=== PATIENT | male | born 1990 | race Caucasian/White ===

== ENCOUNTER 2017-02-11 14:16 | Day surgery (SDC) | payer OTHER ==
[~2017-02-11] VITALS: Ht 172.7 cm; Wt 61.0 kg
[2017-02-11] VITALS (19 sets, daily range): BP systolic 111–174; BP diastolic 56–70; PULSE 60–78; RESP 17–20; Ht 172.7 cm; Wt 61.0 kg
[2017-02-11] MEDS ORDERED: TERB250T46 PO (14:30)
[2017-02-11] MEDS ORDERED: NAPR-688 PO (14:30)
[2017-02-11] MEDS ORDERED: TRAM50TA2 PO (14:31)
[2017-02-11] MEDS ORDERED: HYDR10FO PR (14:31)
--- NOTE | 2017-02-11 15:55 | HPN ---
Date/Time of Note Date/Time of Note DATE: 02/11/17 TIME: 15:55 Interval H&P Admission Note Pt. 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
[2017-02-11] MEDS ORDERED: LIDOCAINE 2% (SDV) 5 ML INJ ONE (17:18)
[2017-02-11] MEDS ORDERED: MEPERIDINE 100 MG INJ ONE (17:18)
[2017-02-11] MEDS ORDERED: PROPOFOL 20 ML ONE (17:18)
[2017-02-11] MEDS ORDERED: CEFAZOLIN 1 GM INJ ONE (17:18)
[2017-02-11] MEDS ORDERED: BUPIVACAINE 0.5% (SDV) 30 ML INJ ONE (17:45)
[2017-02-11] MEDS ORDERED: POLYMYXIN/BACITRACIN 1L IRRIG IRR ONE (18:37)
[2017-02-11] MEDS ORDERED: ONDANSETRON 4 MG INJ ONE (18:41)
--- NOTE | 2017-02-11 18:52 | OPPN ---
Date/Time of Note Date/Time of Note DATE: 02/11/17 TIME: 18:51 Operative Report Preoperative Diagnosis Right ring and small finger CMC fracture dislocations with ring finger metacarpal base intra-articular fracture and hamate fracture Postoperative Diagnosis Right ring and small finger CMC fracture dislocations with ring finger metacarpal base intra-articular fracture and hamate fracture Operation/Procedure Performed Open treatment of Right ring and small finger CMC fracture dislocations, ring finger metacarpal base intra-articular fracture and hamate fracture Provider: MIKE STOREY Anesthesia Type: general Estimated blood loss: 0 - 10 ml's Transfusion Required: no Specimen: none Grafts/Implants: none Complications: no MIKE STOREY Feb 11, 2017 18:52
[2017-02-11] MEDS ORDERED: ONDANSETRON 4 MG INJ IV PRN (19:00)
[2017-02-11] MEDS ORDERED: EPHEDrine SULFATE 50 MG/5 ML SYG IV PRN (19:00)
[2017-02-11] MEDS ORDERED: FENTAnyl 50 MCG/ML VIAL IV PRN ×3 (19:00)
[2017-02-11] MEDS ORDERED: METOCLOPRAMIDE 10 MG INJ IV PRN (19:00)
[2017-02-11] MEDS ORDERED: hydrALAzine 20 MG INJ IV PRN (19:00)
[2017-02-11] MEDS ORDERED: LABETALOL HCL 20MG INJ IV PRN (19:00)
[2017-02-11] MEDS ORDERED: MEPERIDINE 25 MG INJ IV PRN (19:00)
[2017-02-11] MEDS ORDERED: DIPHENHYDRAMINE 50 MG INJ IV PRN (19:00)
[2017-02-11] MEDS ORDERED: HYDROmorphONE (0.2 MG/ML) 10ML SYG IV PRN ×2 (19:00)
[2017-02-11] MEDS ORDERED: OXYCODONE/ACETAMINOPHEN (5/325) TAB PO PRN ×2 (19:00)
[2017-02-11] MEDS ORDERED: HYDROmorphONE (0.2 MG/ML) 10ML SYG IV ONE (19:07)
[2017-02-11] MEDS: HYDROmorphONE (0.2 MG/ML) 10ML SYG IV PRN ×2 (19:28→19:41)
--- NOTE | 2017-02-11 19:46 | OPR ---
DATE OF OPERATION: 02/11/2017 SURGEON: Andi Jones MD ANESTHESIA: General plus local. PREOPERATIVE DIAGNOSIS: 1. Right small finger carpometacarpal joint fracture subluxation/dislocation. 2. Right ring finger carpometacarpal joint fracture subluxation/dislocation. 3. Right hand hamate fracture. POSTOPERATIVE DIAGNOSIS: 1. Right small finger carpometacarpal joint fracture subluxation/dislocation. 2. Right ring finger carpometacarpal joint fracture subluxation/dislocation. 3. Right hand hamate fracture. OPERATION PERFORMED: 1. Open treatment of right small finger carpometacarpal joint fracture subluxation/dislocation. 2. Open reduction internal fixation of right ring finger carpometacarpal joint fracture subluxation/dislocation with intra- articular fracture of the metacarpal base. 3. Open reduction internal fixation of right hand hamate fracture. OPERATIVE FINDINGS AT SURGERY: 1. Hamate fracture intra-articular at the CMC joint with joint depression. 2. Dorsal fracture dislocation of the right ring finger with early scar tissue and callus formation. INDICATION FOR PROCEDURE: A 26-year-old male with injury to the right hand. He was seen in clinic 4 weeks after the injury and options were discussed. He was found to have a fracture dislocation of the ring finger as well as fracture of the hamate involving the ring finger and small finger CMC joints. Given the displacement and deformity with persistent pain patient elected to proceed with surgical intervention understanding the risks and benefits. OPERATIVE PROCEDURE: Patient was seen in the preoperative area. All further questions were answered. Again, he gave informed consent understanding the risks, benefits. He was taken to the operating suite and placed in supine position. He was placed under general anesthesia and tourniquet placed on the right upper extremity. Right upper extremity was prepped with ChloraPrep stick and draped usual sterile fashion. Ancef 2 grams IV was given. Esmarch bandage was used to exsanguinate the extremity and tourniquet inflated to 250 mmHg. Attempt was made to do a closed reduction of the fracture dislocations of the ring finger and small finger, but I was unable to do so due to the chronicity of the injury. Decision was made to do an open reduction. A dorsal longitudinal incision centered between the ring finger and small finger metacarpal base was utilized with sharp dissection carried down through skin and subcutaneous tissue. The dorsal ligaments and joint capsule overlying the ring finger were incised and the base of the ring finger was mobilized. It was quite stuck in place in its dorsal dislocated position due to the chronicity of the injury and extensive dissection was required in order to mobilize the ring finger metacarpal and broke into a more anatomic position. The hamate had also suffered a fracture with impaction and shortening. The hamate fracture affected both the ring finger and small finger CMC joints. I was able to reduce the ring finger into a more anatomic position with a volarly directed force with traction on the ring finger. Two 0.045 K-wires were driven transversely from the ring finger metacarpal base into the middle finger metacarpal base. This provided excellent stability. There was persistent joint depression of the hamate at both the ring finger and small finger and traction was placed on the small finger and a freer elevator was used to reduce the joint depression and a K-wire was used to secure the fracture and buttress the articular surface and was driven into the capitate. Overall the joint alignment on direct visualization appeared more anatomic. There was no further dorsal prominence of the ring finger metacarpal base. X-ray imaging confirmed appropriate hardware positioning and bony alignment. The wound was copiously irrigated and pins were cut short. The skin was closed with 5-0 nylon. Pin caps placed and Xeroform placed on the wound followed by sterile gauze, Webril, and a short-arm metacarpal cuffed splint. Tourniquet was deflated after 51 minutes and patient was awakened from anesthesia. He was taken to the postoperative suite in stable condition and tolerated the procedure well without complication. SPECIMENS: None. ESTIMATED BLOOD LOSS: 5 mL. COUNTS: Sponge, instrument, needle counts correct. TOURNIQUET TIME: 51 minutes. CONDITION ON DISCHARGE: Stable. Dictated By: Andi Jones MD /nadia/felicity /Document#: [id number] KATHE
[2017-02-11] MEDS ORDERED: HYDROCODONE/APAP (5/325) TAB PO PRN (22:00)
--- NOTE | 2017-02-12 11:38 | RADRPT ---
PROCEDURE: X-ray fluoroscopy guidance CLINICAL INDICATION: Right hip ORIF procedure TECHNIQUE: Fluoroscopic guidance was utilized for an intraoperative procedure. Fluoro time: 0.5 minutes Number of images/sequences: 16 COMPARISON: None available FINDINGS: Multiple pins are seen in place in the base of the metacarpal bones and distal carpal metacarpal natacha nt space. Bony mineralization is normal. Surgical repair was performed. No other incidental abnormal ity is identified. The remaining peripheral osseous structures are intact. IMPRESSION: 1. X-ray fluoroscopic guidance utilized for intraoperative procedure. 2. ORIF of the right hand. RPTAT: HMJB .Brando Schilling MD, MD Date Time Electronically viewed and signed by .Brando Schilling MD, on 02/12/2017 11:37 .B/
== END 2017-02-11 21:00 | disposition home or self-care (01) ==
LOC: SDS 14:16
PROVIDERS: ATTEND Orthopaedic Surgery Hand Surgery
DX: S62.141A Displaced fracture of body of hamate [unciform] bone, right wrist, initial encounter for closed fracture (principal); S62.316A Displaced fracture of base of fifth metacarpal bone, right hand, initial encounter for closed fracture; S62.314A Displaced fracture of base of fourth metacarpal bone, right hand, initial encounter for closed fracture; X58.XXXA Exposure to other specified factors, initial encounter; Y92.89 Other specified places as the place of occurrence of the external cause; J45.909 Unspecified asthma, uncomplicated; F41.8 Other specified anxiety disorders
CPT/HCPCS: 25645; 26746; 73140; C1713; J0690; J1170; J2175; J2405; Z7512; Z7610